=== PATIENT | female | born 2000 | race Two or more races ===

== ENCOUNTER 2024-09-09 16:02 | Emergency (ER) | payer OTHER ==
[~2024-09-09] VITALS: Ht 162.6 cm; Wt 68.0 kg
[2024-09-09] MEDS ORDERED: FLUCONAZOLE150 MG (16:48)
== END 2024-09-09 19:14 | disposition home or self-care (01) ==
LOC: ER 16:02
DX: S61.211A Laceration without foreign body of left index finger without damage to nail, initial encounter (principal); W25.XXXA Contact with sharp glass, initial encounter; Y93.89 Activity, other specified; Y92.89 Other specified places as the place of occurrence of the external cause; Y99.9 Unspecified external cause status

== ENCOUNTER 2024-09-21 15:09 | Emergency (ER) | payer OTHER ==
[~2024-09-21] VITALS: Ht 162.6 cm; Wt 68.0 kg
[~2024-09-21 15:09] MED LIST: FLUCONAZOLE150 MG
== END 2024-09-21 16:40 | disposition home or self-care (01) ==
LOC: ER 15:19
DX: Z48.02 Encounter for removal of sutures (principal)

== ENCOUNTER 2025-03-24 21:20 | Emergency (ER) | payer OTHER ==
[~2025-03-24] VITALS: Ht 162.6 cm; Wt 72.6 kg
[2025-03-24] MEDS ORDERED: ACETAMINOPHEN 500 MG GEL..CAP PO ONE ×2 (22:15→22:27)
[2025-03-24] MEDS ORDERED: FAMOTIDINE/PF 20 MG in 0.9 % SODIUM CHLORIDE 8 ML IV PUSH ONE (22:15)
[2025-03-24] MEDS ORDERED: 0.9 % SODIUM CHLORIDE 1,000 ML IV SCH (22:15)
[2025-03-24] MEDS ORDERED: KETOROLAC TROMETHAMINE 30 MG VIAL IU ONE (22:15)
[2025-03-24] MEDS ORDERED: KETOROLAC TROMETHAMINE 30 MG VIAL ONE (22:26)
[2025-03-24] MEDS ORDERED: FAMOTIDINE/PF 20 MG/2 ML VIAL ONE (22:27)
[2025-03-25 00:15] LABS: BASO % 0.5 % (0.1-1.2); EOS # 0.16 (0.04-0.54); EOS % 1.5 % (0.7-7.0); LYMPH # 3.67 (1.18-3.74); LYMPH % 33.4 % (19.3-53.1); MEAN PLATELET VOLUME 9.20 fl (9.4-12.4); MONO # 0.75 (0.24-0.82); MONO % 6.8 % (4.7-12.5); NEUT # 6.34 (1.56-6.13); NEUT % 57.6 % (34.0-71.1); RED CELL DISTRIBUTION WIDTH 10.7 % (11.6-14.4)
[2025-03-25 00:51] LABS: ALT/SGPT 14 U/L (12-78); AST/SGOT 16 U/L (15-37); BILIRUBIN TOTAL 0.38 mg/dL (0.3-1.2); BUN CREA RATIO 20 (7.0-25.0); CREATININE SERUM 0.66 mg/dL (0.55-1.02); GFR 110.98; GLOBULINA 4.1 G/DL (2.4-3.5); GLUCOSE FASTING 91 mg/dL (65-100); OSMOLALITY SERUM 283 MOSM/KG (275-295)
[2025-03-25] MEDS ORDERED: CEFTRIAXONE SODIUM 1,000 MG VIAL IV STA (01:09)
[2025-03-25 01:10] LABS: HCG QUANTITATIVE < 1 mUI/mL (1-3)
[2025-03-25] MEDS ORDERED: CEFTRIAXONE SODIUM 1,000 MG VIAL ONE (01:17)
[2025-03-25 01:38] LABS: URINE APPEARANCE Clear; URINE BILIRRUBIN Negative (NEGATIVE); URINE BLOOD Small; URINE COLOR Yellow; URINE GLUCOSE Negative (NEGATIVE); URINE KETONE Negative (NEGATIVE); URINE LEUKOCYTE Moderate; URINE NITRATE Negative; URINE PROTEIN Negative (NEGATIVE); URINE UROBILINOGEN 0.2 E.U./dl
[2025-03-25 01:42] LABS: URINE EPITHELIAL CELLS 49.9 uL (0.0-38.8); URINE RBC 40.3 uL (0.0-20.8); URINE WBC 317.2 uL (0.0-23.2)
[2025-03-25 01:45] LABS: URINE CAST 0.00 uL (0.0-1.40)
[2025-03-25] MEDS ORDERED: INTESTINEX680 M1 PO (02:13)
[2025-03-25] MEDS ORDERED: CEFDINIR300 MG PO (02:13)
[2025-03-25] MEDS ORDERED: NABUMETONE500 MG PO (02:13)
[2025-03-25] MEDS ORDERED: FLUCONAZOLE150 MG PO (02:13)
[2025-03-25 02:21] VITALS: BP 125/85; O2SAT 100
== END 2025-03-25 02:23 | disposition home or self-care (01) ==
LOC: ER 21:21
PROVIDERS: General Practice
DX: N39.0 Urinary tract infection, site not specified (principal); M54.50 Low back pain, unspecified